=== PATIENT | female | born 1985 | race Caucasian/White ===

== ENCOUNTER → 2019-12-02 | Outpatient (CLI) | payer OTHER ==
[2019-12-04 15:11] LABS: HPV 16 Negative (Negative); HPV 18 Negative (Negative); HPV OTHER HR TYPES Negative (Negative)
== END ==
LOC: LAB 17:15 → LAB SHORT 17:15
PROVIDERS: Registered Nurse Community Health
DX: Z12.4 Encounter for screening for malignant neoplasm of cervix (principal)
CPT/HCPCS: 87624; G0123

== ENCOUNTER 2020-10-19 09:26 | Day surgery (SDC) | payer OTHER ==
[~2020-10-19] VITALS: Ht 170.2 cm; Wt 102.8 kg
--- NOTE | 2020-10-19 11:04 | NUR ---
Ambulatory in Day Surgery History, Chart, Medications and Allergies reviewed before start of procedure.Patient confirms NPO status and agrees with scheduled surgery. Patient states colon prep results clear.Lungs clear T/O to Auscultation. Patient States Post-Procedure ride home has been arranged WITH SISTER IN LAW
--- NOTE | 2020-10-19 11:20 | NUR ---
10/19/20 1120 JollyGregory PATIENT DETERMINED TO BE ASA APPROPRIATE FOR PROPOFOL SEDATION PRIOR TO START OF PROCEDURE BY 3-LEAD EKG REVIEWED WITH PHYSICIAN PRIOR TO START OF PROCEDURE.Patient to ENDO 1History, Chart, Medications and Allergies reviewed before start of procedure.MONITOR INTACT WITH CONTINUOUS PULSE OXIMETRY AND INTERMITTENT BP.O2 VIA N/C INTACT THROUGHOUT SEDATION/PROCEDURE.
--- NOTE | 2020-10-19 12:15 | NUR ---
PT'S RIDE CALLED AND WILL BE HERE IN 45 MIN. PT A&O X 3. WARM BLANKET PROVIDED. PT STATES NO FURTHER NEEDS AT THIS TIME.
--- NOTE | 2020-10-19 13:06 | NUR ---
1240- PT READY FOR DC HOME, DRESSED, WAITING FOR RIDE HOME TO CALL DAY SURGERY AND WILL WHEEL PT OUT. RIDE COMING FROM DRAIN. 1300- RIDE HOME CALLED, HERE. Discharged via wheelchair to private car for ride home.
== END 2020-10-19 22:46 | disposition home or self-care (01) ==
LOC: ORSCMMR 09:26
PROVIDERS: Internal Medicine Gastroenterology
PROC: 0DBM8ZX Excision of Descending Colon, Via Natural or Artificial Opening Endoscopic, Diagnostic (ICD-10-PCS; principal; 2020-10-19 10:30)
DX: K62.5 Hemorrhage of anus and rectum (principal); D12.4 Benign neoplasm of descending colon; N81.6 Rectocele; F17.210 Nicotine dependence, cigarettes, uncomplicated
CPT/HCPCS: 88305; J2250; J2704; J7120

== ENCOUNTER → 2021-02-16 | Outpatient (CLI) | payer OTHER ==
[~2021-02-16] MED LIST: DULO30 PO; OXYC5 PO; SENN187 PO
[2021-02-18 16:09] LABS: COTININE Negative ng/mL (Cutoff=300)
== END | disposition home or self-care (01) ==
LOC: LAB 14:49 → LAB SHORT 14:49
PROVIDERS: Obstetrics & Gynecology
DX: Z01.812 Encounter for preprocedural laboratory examination (principal)

== ENCOUNTER 2021-05-01 08:57 | Day surgery (SDC) | payer OTHER ==
[~2021-05-01] VITALS: Ht 170.2 cm; Wt 105.6 kg
[2021-05-01] MEDS ORDERED: DULO30 PO (09:16)
[2021-05-01] MEDS ORDERED: SENN187 PO (09:16)
--- NOTE | 2021-05-01 09:42 | NUR ---
PT AMBULATES TO [facility] c STEADY GAIT. REPORTS NPO SINCE MIDNIGHT. History, Chart, Medications and Allergies reviewed before start of procedure. Lungs clear T/O to Auscultation. + VOID. ALL JEWELRY AND PIERCING REMOVED AT HOME. PT REQUESTS PREP IN OR D/T ANXIETY.
--- NOTE | 2021-05-01 12:30 | NUR ---
05/01/21 1230 ALESHA,ALESHA PT NOTED TO HAVE REDDENED CYSTS ON RIGHT FLANK AREA AND AND LEFT INNER THIGH, AREAS INTACT NO DRAINAGE. DR PITTS MADE AWARE. AREAS NOTED PRIOR TO PROCEDURE.
--- NOTE | 2021-05-01 17:12 | NUR ---
SHIFT SUMMARY PT IS DOING WELL BUT DID HAVE ONE EPISODE W/ FIRST AMBULATION WHERE SHE BECAME LIGHTHEADED & NAUSEATED. ASSISTED BACK TO BED & VS CHECK WNL. OTHER THAN ONE EPISODE, DOING WELL. SNACKING & DRINKING FLUIDS WELL. DESCRIBES PAIN DISCOMFORT W/ SOME RELIEF FROM OXY. SMALL TO MODERATE AMOUNT OF VAGINAL BLEEDING. ABD SOFT.
--- NOTE | 2021-05-01 19:29 | NUR ---
BEDSIDE REPORG REC FROM MARLENY MIRZA. PT A/O, REP PAIN RAPHAEL AT THIS TIME. PT RECENTLY MED FOR NAUSEA, DENIES AT THIS TIME. PT DENIES NEEDS, WILL MONITOR AND TX PER ORDERS.
[2021-05-02 05:08] LABS: BASOPHILS ABSOLUTE AUTO 0.01 K/mm3 (0.00-0.23); BASOPHILS PERCENT AUTO 0 % (0-2); EOSINOPHILS PERCENT AUTO 0 % (0-6); Hemoglobin 11.6 g/dL (11.5-16.0); IMMATURE GRAN ABSOLUTE AUTO 0.07 K/mm3 (0.00-0.10); IMMATURE GRAN PERCENT AUTO 1 % (0-1); LYMPHOCYTES ABSOLUTE AUTO 0.98 K/mm3 (0.84-5.20); LYMPHOCYTES PERCENT AUTO 7 % (21-46); MONOCYTES ABSOLUTE AUTO 0.85 K/mm3 (0.16-1.47); MONOCYTES PERCENT AUTO 6 % (4-13); Mean Corpuscular HGB 31.4 pg (26.0-34.0); Mean Corpuscular HGB Conc 34.1 g/dL (31.5-36.5); Mean Corpuscular Volume 92 fL (80-100); Mean Platelet Volume 11.4 fL (9.1-12.4); NEUTROPHILS PERCENT AUTO 86 % (41-73); Platelet Count 228 K/mm3 (150-400); RDW Coefficient Variation 12.2 % (11.7-14.2); Red Blood Cell Count 3.69 M/mm3 (3.80-5.20); White Blood Cell Count 13.61 K/mm3 (4.00-11.30)
--- NOTE | 2021-05-02 07:19 | NUR ---
POD 1 S/P ANTERIOR REPAIR. BP HYPO, 90'S/50'S, PT DENIED DIZZUENSS AT REST, DID NOT GET OOB THIS SHIFT. NADINE PAD CHANGED X1 THIS SHIFT W/SMALL AMT LIGHT RED BLOOD. PAIN MGD W/TORADOL W/REP RELIEF. PT HAD 1 EPISODE OF EMESIS, R/T ACID REFULX PER PT; DECLINED NEED FOR NAUSEA MEDS. PLAN FOR DR PITTS TO D/C SWIFT AND VAGINAL PACKING THIS AM.
[2021-05-02] MEDS ORDERED: OXYC5 PO (09:54)
--- NOTE | 2021-05-02 12:20 | NUR ---
DISCHARGE PT DOESN'T HAVE MUCH OF AN APPETITE AND ISN'T DRINKING TOO MUCH BUT WAS ABLE TO VOID x 2. HAS NO BLADDER FULLNESS FEELING OR CONT URGE TO URINATE. DENIES PAIN. SCANT VAG BLEEDING POST PACKING REMOVAL BY .
== END 2021-05-02 12:20 | disposition home or self-care (01) ==
LOC: ORSCMMR 08:57 → ORD 10:30 → ORSCMMR 13:09 → SURS 13:09 → ORSCMMR 05-02 12:20 → SURS 05-02 12:20
PROVIDERS: Obstetrics & Gynecology
PROC: 0JQC0ZZ Repair Pelvic Region Subcutaneous Tissue and Fascia, Open Approach (ICD-10-PCS; principal; 2021-05-01 10:30)
DX: N81.6 Rectocele (principal); K21.9 Gastro-esophageal reflux disease without esophagitis; F90.9 Attention-deficit hyperactivity disorder, unspecified type; Z79.899 Other long term (current) drug therapy
CPT/HCPCS: 36415; 85025; A9270; J0171; J0330; J1100; J1885; J2250; J2270; J2405; J2704; J3010; J7120

== ENCOUNTER → 2022-06-20 | Outpatient (CLI) | payer OTHER ==
[2022-06-21 15:12] LABS: HPV 16 Negative (Negative); HPV 18 Negative (Negative); HPV OTHER HR TYPES Negative (Negative)
== END | disposition home or self-care (01) ==
LOC: LAB 15:25 → LAB SHORT 15:25
PROVIDERS: Obstetrics & Gynecology
DX: Z01.419 Encounter for gynecological examination (general) (routine) without abnormal findings (principal)
CPT/HCPCS: 87624; G0123

== ENCOUNTER 2022-07-25 19:47 | Emergency (ER) | payer OTHER ==
[~2022-07-25] VITALS: Ht 170.2 cm; Wt 108.9 kg
[2022-07-25 20:49] LABS: BASOPHILS ABSOLUTE AUTO 0.06 K/mm3 (0.00-0.23); BASOPHILS PERCENT AUTO 1 % (0-2); EOSINOPHILS ABSOLUTE AUTO 0.19 K/mm3 (0.00-0.68); EOSINOPHILS PERCENT AUTO 2 % (0-6); Hematocrit 39.3 % (33.0-51.0); Hemoglobin 13.1 g/dL (11.5-16.0); IMMATURE GRAN ABSOLUTE AUTO 0.03 K/mm3 (0.00-0.10); IMMATURE GRAN PERCENT AUTO 0 % (0-1); LYMPHOCYTES ABSOLUTE AUTO 2.22 K/mm3 (0.84-5.20); LYMPHOCYTES PERCENT AUTO 21 % (21-46); MONOCYTES ABSOLUTE AUTO 0.63 K/mm3 (0.16-1.47); MONOCYTES PERCENT AUTO 6 % (4-13); Mean Corpuscular HGB 29.9 pg (26.0-34.0); Mean Corpuscular HGB Conc 33.3 g/dL (31.5-36.5); Mean Corpuscular Volume 90 fL (80-100); Mean Platelet Volume 10.9 fL (9.1-12.4); NEUTROPHILS ABSOLUTE AUTO 7.29 K/mm3 (1.96-9.15); NEUTROPHILS PERCENT AUTO 70 % (41-73); Platelet Count 276 K/mm3 (150-400); RDW Coefficient Variation 12.8 % (11.7-14.2); RDW Standard Deviation 41.6 fL (35.1-46.3); Red Blood Cell Count 4.38 M/mm3 (3.80-5.20); White Blood Cell Count 10.42 K/mm3 (4.00-11.30)
[2022-07-25 21:14] LABS: Albumin, Blood 3.5 g/dL (3.4-5.0); Bilirubin, Total 0.2 mg/dL (0.1-1.0); Bun/Creatinine Ratio 16.5 (12.0-20.0); Calcium, Blood 8.8 mg/dL (8.5-10.1); Creatinine, Blood 0.73 mg/dL (0.40-1.00); Globulin, Blood 3.4 g/dL (2.2-4.0); Total Protein, Blood 6.9 g/dL (6.4-8.2)
== END 2022-07-25 23:18 | disposition home or self-care (01) ==
LOC: ER 19:47
PROVIDERS: Physician Assistant
DX: R10.11 Right upper quadrant pain (principal); F17.200 Nicotine dependence, unspecified, uncomplicated; Z88.7 Allergy status to serum and vaccine; Z88.8 Allergy status to other drugs, medicaments and biological substances; Z79.899 Other long term (current) drug therapy
CPT/HCPCS: 36415; 76705; 80053; 83690; 85025; 93005; 93010; 96374; 99284-25; A9270; J2405

== ENCOUNTER 2022-09-06 16:51 | Emergency (ER) | payer OTHER ==
[~2022-09-06] VITALS: Ht 172.7 cm; Wt 108.9 kg
[2022-09-06 19:12] LABS: BASOPHILS ABSOLUTE AUTO 0.02 K/mm3 (0.00-0.23); BASOPHILS PERCENT AUTO 0 % (0-2); EOSINOPHILS PERCENT AUTO 0 % (0-6); Hematocrit 44.4 % (33.0-51.0); Hemoglobin 15.5 g/dL (11.5-16.0); IMMATURE GRAN PERCENT AUTO 0 % (0-1); LYMPHOCYTES ABSOLUTE AUTO 1.29 K/mm3 (0.84-5.20); LYMPHOCYTES PERCENT AUTO 18 % (21-46); MONOCYTES ABSOLUTE AUTO 0.95 K/mm3 (0.16-1.47); MONOCYTES PERCENT AUTO 13 % (4-13); Mean Corpuscular HGB Conc 34.9 g/dL (31.5-36.5); Mean Corpuscular Volume 86 fL (80-100); Mean Platelet Volume 11.4 fL (9.1-12.4); NEUTROPHILS ABSOLUTE AUTO 5.02 K/mm3 (1.96-9.15); NEUTROPHILS PERCENT AUTO 69 % (41-73); Platelet Count 246 K/mm3 (150-400); RDW Coefficient Variation 12.6 % (11.7-14.2); RDW Standard Deviation 39.6 fL (35.1-46.3); Red Blood Cell Count 5.17 M/mm3 (3.80-5.20); White Blood Cell Count 7.28 K/mm3 (4.00-11.30)
[2022-09-06 19:29] LABS: Albumin, Blood 3.7 g/dL (3.4-5.0); Albumin/Globulin Ratio 0.9 (0.8-1.8); Bilirubin, Total 0.4 mg/dL (0.1-1.0); Bun/Creatinine Ratio 12.9 (12.0-20.0); Creatinine, Blood 0.7 mg/dL (0.40-1.00); Globulin, Blood 4.3 g/dL (2.2-4.0); Potassium, Blood 3.7 mmol/L (3.5-5.5)
[2022-09-06 20:27] LABS: Source, Urine Clean Catch
[2022-09-06 20:33] LABS: Appearance, Urine Clear (Clear); Bilirubin, Urine Neg (Neg); Blood, Urine 5+ (Neg); Color, Urine Yellow (P-Yellow); Glucose Qualitative, Urine Neg (Neg); Ketones, Urine 4+ (Neg); Leukocyte Esterase, Urine 1+ (Neg); Nitrite, Urine Neg (Neg); Protein, Urine 2+ (Neg); Urobilinogen, Urine NORM (Normal)
[2022-09-06 20:40] LABS: Bacteria Few /hpf; Squamous Epithelial Cells Few /hpf (Few)
[2022-09-06 20:41] LABS: Mucus Light (0-Heavy); Renal Epithelial Rare /hpf (0-Rare)
[2022-09-06] MEDS ORDERED: ONDA4ODT MM (21:43)
== END 2022-09-06 21:57 | disposition left against medical advice (07) ==
LOC: ER 16:51
PROVIDERS: Physician Assistant
DX: K52.9 Noninfective gastroenteritis and colitis, unspecified (principal); F17.200 Nicotine dependence, unspecified, uncomplicated; Z88.7 Allergy status to serum and vaccine; Z88.8 Allergy status to other drugs, medicaments and biological substances; Z79.899 Other long term (current) drug therapy
CPT/HCPCS: 36415; 74177; 80053; 81001; 83690; 85025; 87086; J1790; J2405; J7030; Q9967

== ENCOUNTER 2023-05-17 13:27 | Emergency (ER) | payer OTHER ==
[~2023-05-17] VITALS: Ht 170.2 cm; Wt 115.7 kg
[~2023-05-17 13:27] MED LIST changes: +ONDA4ODT MM
[2023-05-17 14:51] LABS: BASOPHILS ABSOLUTE AUTO 0.03 K/mm3 (0.00-0.23); BASOPHILS PERCENT AUTO 1 % (0-2); EOSINOPHILS ABSOLUTE AUTO 0.14 K/mm3 (0.00-0.68); EOSINOPHILS PERCENT AUTO 3 % (0-6); Hemoglobin 14.2 g/dL (11.5-16.0); IMMATURE GRAN ABSOLUTE AUTO 0.01 K/mm3 (0.00-0.10); IMMATURE GRAN PERCENT AUTO 0 % (0-1); LYMPHOCYTES ABSOLUTE AUTO 0.85 K/mm3 (0.84-5.20); LYMPHOCYTES PERCENT AUTO 16 % (21-46); MONOCYTES ABSOLUTE AUTO 0.83 K/mm3 (0.16-1.47); MONOCYTES PERCENT AUTO 15 % (4-13); Mean Corpuscular HGB 29.5 pg (26.0-34.0); Mean Corpuscular HGB Conc 33.8 g/dL (31.5-36.5); Mean Corpuscular Volume 87 fL (80-100); Mean Platelet Volume 10.7 fL (9.1-12.4); NEUTROPHILS ABSOLUTE AUTO 3.54 K/mm3 (1.96-9.15); NEUTROPHILS PERCENT AUTO 66 % (41-73); Platelet Count 234 K/mm3 (150-400); RDW Coefficient Variation 12.2 % (11.7-14.2); RDW Standard Deviation 39.1 fL (35.1-46.3); Red Blood Cell Count 4.82 M/mm3 (3.80-5.20)
[2023-05-17 15:05] LABS: Albumin, Blood 3.3 g/dL (3.4-5.0); Albumin/Globulin Ratio 0.9 (0.8-1.8); Bilirubin, Total 0.3 mg/dL (0.1-1.0); Calcium, Blood 8.5 mg/dL (8.5-10.1); Creatinine, Blood 0.82 mg/dL (0.40-1.00); Globulin, Blood 3.8 g/dL (2.2-4.0); Potassium, Blood 3.7 mmol/L (3.5-5.5); Total Protein, Blood 7.1 g/dL (6.4-8.2)
[2023-05-17 17:01] VITALS: BP 116/73
[2023-05-17 17:25] LABS: Source, Urine Clean Catch
[2023-05-17 17:31] LABS: Appearance, Urine Hazy (Clear); Bilirubin, Urine Neg (Neg); Blood, Urine 2+ (Neg); Color, Urine Yellow (P-Yellow); Glucose Qualitative, Urine Neg (Neg); Ketones, Urine 4+ (Neg); Leukocyte Esterase, Urine Neg (Neg); Nitrite, Urine Neg (Neg); Protein, Urine Neg (Neg); Specific Gravity, Urine 1.025 (1.003-1.022); Urobilinogen, Urine NORM (Normal)
[2023-05-17 17:38] LABS: Amorphous Light (0-Heavy); Bacteria Many /hpf; Mucus Mod (0-Heavy); Red Blood Cells, Urine 0-2 /hpf (0-2); Squamous Epithelial Cells Mod /hpf (Few); White Blood Cells, Urine 0-2 /hpf (0-5)
[2023-05-17 17:39] LABS: Hyaline Casts 0-2 /lpf (0-2)
[2023-05-17] MEDS ORDERED: DICY20 PO (18:01)
[2023-05-17] MEDS ORDERED: AMOCLA875 PO (18:01)
[2023-05-17] MEDS ORDERED: Pyridium200 MG PO (18:01)
== END 2023-05-17 18:12 | disposition home or self-care (01) ==
LOC: ER 13:27
PROVIDERS: Physician Assistant
DX: N39.0 Urinary tract infection, site not specified (principal); R19.7 Diarrhea, unspecified; F17.200 Nicotine dependence, unspecified, uncomplicated; Z88.7 Allergy status to serum and vaccine; Z88.8 Allergy status to other drugs, medicaments and biological substances
CPT/HCPCS: 80053; 81001; 83690; 85025; 87086; 96361; 96374; 99284-25; A9270; J2405; J7030

== ENCOUNTER 2024-11-12 06:29 | Day surgery (SDC) | payer OTHER ==
[2024-11-12] VITALS (19 sets, daily range): BP systolic 96–147; BP diastolic 66–122
[~2024-11-12] VITALS: Ht 172.7 cm; Wt 119.5 kg
[~2024-11-12 06:29] MED LIST changes: +AMOCLA875 PO; +DESV50 PO; +DICY20 PO; +Lactated Ringer's 1,000 ML IV SCH; +OMEP20ER PO; +Pyridium200 MG PO
[2024-11-12] MEDS ORDERED: GABA300 PO (06:47)
[2024-11-12] MEDS ORDERED: HYDPAM25 PO (06:49)
[2024-11-12] MEDS ORDERED: Benzocaine Oral Spray 0.5ML UD ONE (06:58)
--- NOTE | 2024-11-12 07:09 | NUR ---
History, Chart, Medications and Allergies reviewed before start of procedure. Lungs clear T/O to Auscultation. Patient confirms NPO status and agrees with scheduled surgery. Patient states colon prep results clear. Pre-Op teaching done. Pt verbalizes understanding.
[2024-11-12] MEDS ORDERED: propofoL 40 ML IV ONE (07:24)
[2024-11-12] MEDS ORDERED: Midazolam HCl 1MG / ML 2ML Vial ONE (07:34)
[2024-11-12] MEDS ORDERED: Ondansetron HCl 2 MG / ML 2ML Vial ONE (08:10)
--- NOTE | 2024-11-12 08:20 | NUR ---
11/12/24 0820 Amberly Whitt CONFIRMED AND REVIEWED H&P, MEDCICATIONS, ALLERGIES, MEDICAL HISTORY, RESPIRATORY HISTORY, VITAL SIGNS, 3-LEAD EKG, CONSENTS, AND PHYSICIAN ORDERS. PATIENT CONFIRMS NPO STATUS AND AGREES WITH SCHEDULED PROCEDURE. MONITOR INTACT WITH CONTINUOUS PULSE OXIMETRY, CAPNOGRAPHY, 3-LEAD EKG, INTERMITTENT BP. SUPPLEMENTAL O2 TO BE TITRATED THROUGHOUT PROCEDURE TO MAINTAIN O2 SATURATION ABOVE 90%. PATIENT DETERMINED TO BE ASA APPROPRIATE FOR PROPOFOL SEDATION PRIOR TO START OF PROCEDURE BY DR. SEALS.
--- NOTE | 2024-11-12 08:43 | NUR ---
Discharge instructions reviewed with patient. Patient verbalizes understanding. Copy given to patient to take home. Coughing subsided. Prescription called into [facility]. Patient States Post-Procedure ride home has been arranged. Discharged via wheelchair to private car for ride home.
== END 2024-11-12 08:45 | disposition home or self-care (01) ==
LOC: ORSCMMR 06:29 → ORD 07:30 → ORSCMMR 08:45
PROVIDERS: Internal Medicine Gastroenterology
PROC: 0DBN8ZX Excision of Sigmoid Colon, Via Natural or Artificial Opening Endoscopic, Diagnostic (ICD-10-PCS; principal; 2024-11-12 07:30)
PROC: 0DB58ZX Excision of Esophagus, Via Natural or Artificial Opening Endoscopic, Diagnostic (ICD-10-PCS; principal; 2024-11-12 07:30)
PROC: 0DB78ZX Excision of Stomach, Pylorus, Via Natural or Artificial Opening Endoscopic, Diagnostic (ICD-10-PCS; principal; 2024-11-12 07:30)
PROC: 0DB48ZX Excision of Esophagogastric Junction, Via Natural or Artificial Opening Endoscopic, Diagnostic (ICD-10-PCS; principal; 2024-11-12 07:30)
PROC: 0DB98ZX Excision of Duodenum, Via Natural or Artificial Opening Endoscopic, Diagnostic (ICD-10-PCS; principal; 2024-11-12 07:30)
DX: K62.5 Hemorrhage of anus and rectum (principal); R10.13 Epigastric pain; K21.9 Gastro-esophageal reflux disease without esophagitis; K29.80 Duodenitis without bleeding; K22.11 Ulcer of esophagus with bleeding; R19.4 Change in bowel habit; K63.5 Polyp of colon; Z86.0101 Personal history of adenomatous and serrated colon polyps; R11.2 Nausea with vomiting, unspecified; F17.210 Nicotine dependence, cigarettes, uncomplicated; E66.9 Obesity, unspecified; Z68.39 Body mass index [BMI] 39.0-39.9, adult
CPT/HCPCS: 88305; 88342; A9270; J2250; J2405; J2704; J7120